=== PATIENT | male | born 1995 | race Caucasian/White ===

== ENCOUNTER 2019-11-01 09:17 | Emergency (ER) | payer OTHER ==
[~2019-11-01] VITALS: Ht 185.4 cm; Wt 99.1 kg
--- NOTE | 2019-11-01 10:07 | REP ---
Chest x-ray: Two views. History: Cough, shortness of breath, fever. Exposure to pneumonia. . Comparison study: No comparison study . Findings: The lungs are well inflated and free of infiltrate. The pleural angles are sharp. The heart size is normal. Pulmonary vasculature is not increased. No significant bony abnormality is seen. Impression: Negative chest x-ray. Electronically Signed by David Delgado MD 11/01/2019 09:58 A
[2019-11-01 10:36] LABS: INFLUENZA A AMPLIFICATION NEGATIVE (NEGATIVE); INFLUENZA B AMPLIFICATION POSITIVE (NEGATIVE)
[2019-11-01 10:48] VITALS: BP 140/80
== END 2019-11-01 10:53 | disposition home or self-care (01) ==
LOC: M ED 09:17
DX: J10.1 Influenza due to other identified influenza virus with other respiratory manifestations (principal); Z88.0 Allergy status to penicillin